=== PATIENT | female | born 1960 | race Caucasian/White ===

== ENCOUNTER 2016-09-28 12:11 | Emergency (ER) | payer OTHER ==
[~2016-09-28] VITALS: Ht 167.6 cm; Wt 74.8 kg
[~2016-09-28 12:11] MED LIST: EPIPEN 2-PAK1 MG/ML IM; LEVOTHYROXINE0.1 M1 PO; MEDROL DOSEPAK1 PAC PO
--- NOTE | 2016-09-28 12:19 | ED UPPER/LOWER EXTREMITY COMPL ---
History of Present Illness General Chief Complaint: Foot or Ankle Injury Stated Complaint: LFT ANKLE PAIN Source: patient Exam Limitations: no limitations Vital Signs & Intake/Output Vital Signs & Intake/Output Vital Signs Date Time Temp Pulse Resp B/P B/P Pulse O2 O2 Flow FiO2 Mean Ox Delivery Rate 09/28 1218 99 Room Air 09/28 1216 98.3 78 15 141/74 100 Room Air Allergies Coded Allergies: MDX - Shellfish (SHELLFISH) (Severe, ANAPHALACTIC 11/19/13) Uncoded Allergies: ARTIFICIAL SWEETENERS AND PRESERVATIVES (Severe, ANAPHALACTIC 11/29/12) SOY JIMENEZ OIL (Severe, ANAPHALACTIC SHOCK 11/29/12) TROPICAL FRUITS (Severe, TONGUE/LIP SWELLING 11/29/12) ENVIRONMENTAL (11/29/12) Reconcile Medications Epinephrine (Epipen 2-Herb Auto-Injector) 1 MG/ML KIT 0.3 mg IM PRN PRN anaphylaxis Hydrocodone/Acetaminophen (Vicodin 5-300 MG Tablet) 5 MG-300 MG TABLET 1 TAB PO BID PRN PAIN Levothyroxine Sodium 0.1 MG TAB 1 TAB PO DAILY HYPOTHYROID (Reported) Methylprednisolone. (Medrol) 4 MG TAB.DS.PK 1 PAC PO TAPER ALLERGIC REACTION Triage Note: PT TO ED S/P A TRIP AND FALL AT HOME. NOW C/O L ANKLE PAIN. SLIGHT LATERAL SWELLING NOTED, NORMAL ROM, +PULSES. PROVIDED WITH ICE PACK. LEXY STUDENT AT BEDSIDE. Triage Nurses Notes Reviewed? yes Onset: Abrupt Duration: constant Timing: recent history Severity: severe Severity Numbers: 7 Method of Injury: fall HPI: Patient is a 56-year-old female who presents emergency room stating that today while walking she tripped on an uneven surface twisting her left ankle resulting in acute onset of sharp stabbing left ankle pain. Patient has mild left lateral foot pain from the fall. Patient denies any traumatic injury from the fall to the ground and she states that the pain occurred after the twisting mechanism. Patient denies any knee pain. Patient denies any head strike back pain neck pain (LISBETH YUAN) Past History Travel History Traveled to [place] past 21 day No Medical History Any Pertinent Medical History? none Neurological: NONE EENT: NONE Cardiovascular: NONE Respiratory: NONE Gastrointestinal: NONE Hepatic: NONE Renal: NONE Musculoskeletal: NONE Psychiatric: NONE Endocrine: NONE Blood Disorders: NONE Cancer(s): NONE CAD MANAGER/Reproductive: NONE Surgical History Surgical History: non-contributory Psychosocial History What is your primary language Mongolian Tobacco Use: Never used ETOH Use: occasional use Illicit Drug Use: denies illicit drug use Family History Hx Contributory? No (LISBETH YUAN) Review of Systems Review of Systems Constitutional: Reports: no symptoms. EENTM: Reports: no symptoms. Respiratory: Reports: no symptoms. Cardiovascular: Reports: no symptoms. Gastrointestinal/Abdominal: Reports: no symptoms. Genitourinary: Reports: no symptoms. Musculoskeletal: Reports: see HPI, joint pain, joint swelling. Skin: Reports: no symptoms. Neurological/Psychological: Reports: no symptoms. Hematologic/Endocrine: Reports: no symptoms. Immunological: Reports: no symptoms. All Other Systems: Reviewed and Negative (LISBETH YUAN) Physical Exam Physical Exam General Appearance: no apparent distress Head: atraumatic Neurologic/Tendon: normal sensation, normal motor functions, normal tendon functions, responds to pain, no evidence tendon injury, no pulse deficit Skin: intact, normal color, warm/dry Comments: Well-developed well-nourished no apparent distress. HEENT: Atraumatic, extraocular motion intact Neck: Supple, no lymphadenopathy Back: Nontender Respiratory: No respiratory distress Extremities: Left knee normal inspection nontender full active range of motion Left ankle noted lateral malleoli swelling and point tenderness decreased active range of motion Left foot mild lateral point tenderness of foot, pedal pulse +2 dermatomes intact capillary refill less than 2 seconds Neuro: Alert and oriented x3 Psych: Mood affect normal, normal memory normal judgment. (LISBETH YUAN) Progress Differential Diagnosis: arterial insufficiency, compartment syndrome, contusion, dislocation, DVT, fracture, gout, septic arthritis, sprain, tendon injury Plan of Care: Orders Procedure Date/time Status Durable Medical Equipment 09/28 1253 Active X-ray shows concerns of left distal fibular fracture. Splinting was applied patient tolerated well patient was given copies of x-ray for follow-up to [facility] established doctor. (LISBETH YUAN) Diagnostic Imaging: Viewed by Me: Radiology Read. Radiology Impression: acute abnormality, fracture Comments: PATIENT: BALDEMAR HILLMAN I PRESENT AGE: 56 PATIENT ACCOUNT NO: [id number] : 62 LOCATION: [facility] ORDERING PHYSICIAN: LISBETH PUGH SERVICE DATE: 09/28/16 EXAM TYPE: RAD - XRY-ANKLE 3 OR MORE VIEWS L; XRY-FOOT COMPLETE, LEFT ADDENDUM: LEFT FOOT: The bones of the foot are unremarkable without additional fracture or dislocation seen. A small metallic foreign body is visualized in the plantar soft tissues of the foot just deep to the skin surface and overlying the fourth metatarsal neck on the AP view. IMPRESSION: 1. Nondisplaced oblique fracture of the distal fibula with overlying soft tissue swelling. Normal alignment of the ankle mortise. Normal distal tibiofibular syndesmosis. 2. No acute fracture or dislocation is seen in the left foot. Small metallic foreign body is seen in the plantar soft tissues of the foot as above. Addendum Signed by: RENÉ COLEY MD 09/28/16 5547 EXAMINATION: XR ANKLE, LEFT XR FOOT, LEFT CLINICAL INFORMATION: Left ankle pain. Left foot pain. Fall. COMPARISON: None. TECHNIQUE: 3 views of the left ankle and 3 views of the left foot performed. FINDINGS: Left ankle: Moderate soft tissue swelling is seen laterally. The ankle mortise is symmetric. An oblique nondisplaced fracture of the distal fibula is seen arising at the level of the ankle mortise (Hawkins B). The ankle mortise is symmetric and the medial and posterior malleoli are intact. IMPRESSION: Nondisplaced oblique fracture of the distal fibula with overlying soft tissue swelling. Normal alignment of the ankle mortise. DICTATED BY: RENÉ COLEY MD DATE/TIME DICTATED:09/28/161257 ENVIRONMENTAL HEALTH AND SAFETY LEADER:JOSE EDUARDO DATE/TIME TRANSCRIBED:09/28/161257 CONFIDENTIAL, DO NOT COPY WITHOUT APPROPRIATE AUTHORIZATION. (LISBETH YUAN) Departure Departure Disposition: HOME OR SELF CARE Condition: Stable Clinical Impression Primary Impression: Fracture of distal fibula Referrals: UMESH DESAI,BARBARA Christine (PCP/Family) Additional Instructions: As discussed begin to elevate the foot for swelling begin [id number] ibuprofen for pain and inflammation begin the prescription of Vicodin for breakthrough pain relief. Prescription is waiting at [facility] On Friday follow-up with your established orthopedic doctor and please provide them with the copy of ankle x-rays. If symptoms worsen return to emergency room. Begin using the crutches for nonweightbearing status Departure Forms: Customer Survey General Discharge Information Prescriptions: Current Visit Scripts Hydrocodone/Acetaminophen (Vicodin 5-300 MG Tablet) 1 TAB PO BID PRN PAIN #8 TAB (LISBETH YUAN) PA/FINANCIAL PLANNING CONSULTANT Co-Sign Statement Statement: ED Attending supervision documentation- [] I saw and evaluated the patient. I have also reviewed all the pertinent lab results and diagnostic results. I agree with the findings and the plan of care as documented in the PA's/FINANCIAL PLANNING CONSULTANT's documentation. [X] I have reviewed the ED Record and agree with the PA's/FINANCIAL PLANNING CONSULTANT's documentation. [] Additions or exceptions (if any) to the PAs/FINANCIAL PLANNING CONSULTANT's note and plan are summarized below: [] (STACI DESAI,REFUGIO Irwin) Procedures Splinting Location: left ankle Manual Alignment Performed: No Hand-Made Type: orthoglass Splint: POSTERIOR LEG Splint Applied By: splint applied by me Pre-Proc Neuro Vasc Exam: normal Post-Proc Neuro Vasc Exam: normal (LISBETH YUAN)
--- NOTE | 2016-09-28 13:03 | RADIOLOGY REPORT ---
EXAMINATION: XR ANKLE, LEFT XR FOOT, LEFT CLINICAL INFORMATION: Left ankle pain. Left foot pain. Fall. COMPARISON: None. TECHNIQUE: 3 views of the left ankle and 3 views of the left foot performed. FINDINGS: Left ankle: Moderate soft tissue swelling is seen laterally. The ankle mortise is symmetric. An oblique nondisplaced fracture of the distal fibula is seen arising at the level of the ankle mortise (Hawkins B). The ankle mortise is symmetric and the medial and posterior malleoli are intact. IMPRESSION: Nondisplaced oblique fracture of the distal fibula with overlying soft tissue swelling. Normal alignment of the ankle mortise.
[2016-09-28] MEDS ORDERED: VICODIN 5-3001 EACH PO (13:25)
[2016-09-28 13:47] VITALS: BP 135/74
== END 2016-09-28 13:50 ==
LOC: ERH 12:11
DX: S82.432A Displaced oblique fracture of shaft of left fibula, initial encounter for closed fracture (principal); W18.09XA Striking against other object with subsequent fall, initial encounter; Y92.9 Unspecified place or not applicable; Y93.01 Activity, walking, marching and hiking
CPT/HCPCS: 73610-LT; 73630-LT

== ENCOUNTER 2017-08-27 20:11 | Emergency (ER) | payer OTHER ==
[~2017-08-27 20:11] MED LIST changes: +VICODIN 5-3001 EACH PO
[2017-08-27] MEDS ORDERED: SYMBICORT 16010.2 GM INH (22:09)
--- NOTE | 2017-08-27 23:29 | ED SKIN/ALLERGY COMPLAINT ---
History of Present Illness General Chief Complaint: Allergy Symptoms Stated Complaint: ALLERGIC REACTION, SWOLLEN TONGUE & THROAT PER PT Source: patient, family, old records Exam Limitations: no limitations Vital Signs & Intake/Output Vital Signs & Intake/Output Vital Signs Date Time Temp Pulse Resp B/P B/P Pulse O2 O2 Flow FiO2 Mean Ox Delivery Rate 08/27 2324 98 08/27 2215 87 16 149/63 100 Room Air 08/27 2204 Room Air 08/27 2014 96.9 103 18 156/84 97 Room Air Allergies Coded Allergies: MDX - Shellfish (SHELLFISH) (Severe, ANAPHALACTIC 11/19/13) Uncoded Allergies: ARTIFICIAL SWEETENERS AND PRESERVATIVES (Severe, ANAPHALACTIC 11/29/12) SOY JIMENEZ OIL (Severe, ANAPHALACTIC SHOCK 11/29/12) TROPICAL FRUITS (Severe, TONGUE/LIP SWELLING 11/29/12) ENVIRONMENTAL (11/29/12) Reconcile Medications Albuterol Sulfate (Proair Hfa) 90 MCG HFA.AER.AD 2 PUF INH Q4-6 PRN PRN bronchospasm Budesonide/Formoterol Fumarate (Symbicort 160-4.5 Mcg Inhaler) 160 MCG-4.5 MCG/ ACTUATION HFA.AER.AD 2 PUF INH BID ALLERGIC REACTION (Reported) Epinephrine (Epipen 2-Herb Auto-Injector) 1 MG/ML KIT 0.3 mg IM PRN PRN anaphylaxis Famotidine (Pepcid) 20 MG TABLET 1 TAB PO BID allergy Levothyroxine Sodium 0.1 MG TAB 1 TAB PO DAILY HYPOTHYROID (Reported) Prednisone 20 MG TABLET 1 TAB PO BID allergy Triage Note: PT TO TRIAGE C/O ALLERGIC RX, PT HAS MANY FOOD ALLERGIES LISTED AND STATES WAS AT A [employer] CON[employer]UTION PARTY AND MUST HAVE COME INTO CONTACT. PT C/O THROAT AND TONGUE SWELLING. PT TOOK 50 MG BENADRYL AND ALBUTEROL/SYMBICORT CLINICAL CODER WITH RELIEF. PT SPEAKING IN CLEAR SENTENCES, 02 SAT 97% ON RA. NO HIVES NOTED. Triage Nurses Notes Reviewed? yes Onset: Just prior to arrival Duration: minute(s):, better, constant, continues in ED Timing: recent history Severity: mild, moderate Location: throat Possible Factors: exposure to allergen, foods Modifying Factors: Improves With: antihistamine. Associated Symptoms: sore throat, swelling/mass/lumps LMP (ages 10-50): post menopausal : No Patient currently breastfeeds: No HPI: Prior to admission the patient believes she ate something she was allergic to subsequently developing throat swelling. She denies fever chills nausea vomiting diarrhea abdominal pain chest pain shortness breath headache dysuria rash bleeding. Past History Travel History Traveled to [place] past 21 day No Medical History Any Pertinent Medical History? see below for history Neurological: NONE EENT: NONE Cardiovascular: NONE Respiratory: NONE Gastrointestinal: NONE Hepatic: NONE Renal: NONE Musculoskeletal: NONE Psychiatric: NONE Endocrine: hypothyroidism Blood Disorders: NONE Cancer(s): NONE PCMH SPECIALIST/Reproductive: NONE Surgical History Surgical History: non-contributory Psychosocial History What is your primary language Salvadorean Tobacco Use: Never used Family History Hx Contributory? No Review of Systems Review of Systems Constitutional: Reports: no symptoms. EENTM: Reports: see HPI. Respiratory: Reports: no symptoms. Cardiovascular: Reports: no symptoms. GI: Reports: no symptoms. Genitourinary: Reports: no symptoms. Musculoskeletal: Reports: no symptoms. Skin: Reports: no symptoms. Neurological/Psychological: Reports: no symptoms. Hematologic/Endocrine: Reports: no symptoms. Immunologic/Allergic: Reports: no symptoms. All Other Systems: Reviewed and Negative Physical Exam Physical Exam General Appearance: well developed/nourished, alert, awake, anxious, mild distress, obese Head: atraumatic, normal appearance Eyes: Bilateral: normal appearance, PERRL, EOMI. Ears, Nose, Throat: normal pharynx, normal ENT inspection, hearing grossly normal Neck: normal inspection, supple, full range of motion, no midline tenderness Respiratory: chest non-tender, no respiratory distress, quiet respiration, lungs clear, decreased breath sounds Cardiovascular: regular rate/rhythm, normal peripheral pulses, norml femoral pulses equa Peripheral Pulses: 4+ carotid (R), 4+ carotid (L) Gastrointestinal: normal bowel sounds, soft, non-tender, no organomegaly Back: normal inspection, normal range of motion Extremities: normal inspection, normal range of motion, no edema Neurologic/Psych: awake, alert, oriented x 3, normal mood/affect Reflexes: 2+: bicep (R), bicep (L). Skin: intact, normal color, warm/dry Lymphatic: no anterior cervical layla Progress Differential Diagnosis: allergic reaction, anaphylaxis, angioedema, asthma Plan of Care: neb prednisone pepcid Departure Departure Time of Disposition: 2343 Disposition: HOME OR SELF CARE Condition: Stable Clinical Impression Primary Impression: Allergy, food Referrals: Serena DESAI,Alise Christine (PCP/Family) Departure Forms: Customer Survey General Discharge Information Prescriptions: Current Visit Scripts Prednisone 1 TAB PO BID #10 TAB Albuterol Sulfate (Proair Hfa) 2 PUF INH Q4-6 PRN PRN bronchospasm #1 INHAL Famotidine (Pepcid) 1 TAB PO BID #10 TAB
[2017-08-27] MEDS ORDERED: PREDNISONE20 M1 PO (23:45)
[2017-08-27] MEDS ORDERED: PEPCID20 M1 PO (23:45)
[2017-08-27] MEDS ORDERED: PROAIR HFA8.5 GM INH (23:45)
[2017-08-27 23:51] VITALS: BP 136/73
== END 2017-08-27 23:51 ==
LOC: ERH 20:11
DX: T78.1XXA Other adverse food reactions, not elsewhere classified, initial encounter (principal)